=== PATIENT | female | born 1965 | race Caucasian/White ===

== ENCOUNTER 2023-01-17 08:11 | Day surgery (SDC) | payer BC ==
[~2023-01-17 08:11] MED LIST: Lactated Ringers 1,000 ML IV SCH
[2023-01-17] MEDS ORDERED: Lactated Ringers 1,000 ML IV SCH (08:30)
[2023-01-17] MEDS ORDERED: Propofol 200 MG/20 ML SDV ONE ×2 (09:21→09:36)
[2023-01-17] MEDS ORDERED: fentaNYL 100 MCG/2 ML SDV ONE (09:22)
== END 2023-01-17 11:20 | disposition home or self-care (01) ==
LOC: VM.SDS 08:11
PROVIDERS: ATTEND Surgery
DX: Z12.11 Encounter for screening for malignant neoplasm of colon (principal); K57.30 Diverticulosis of large intestine without perforation or abscess without bleeding; F32.A Depression, unspecified; F41.9 Anxiety disorder, unspecified; J21.9 Acute bronchiolitis, unspecified; Z79.899 Other long term (current) drug therapy; Z20.822 Contact with and (suspected) exposure to COVID-19
CPT/HCPCS: 00812; J2704; J3010; J7120